=== PATIENT | female | born 1980 | race Caucasian/White ===

== ENCOUNTER → 2021-02-23 15:20 | Outpatient (CLI) | payer OTHER, SELFPAY ==
--- NOTE | ~2021-02-23 | XR_ITS ---
EXAMINATION: XR chest 2V DATE: 02/23/2021 15:56 INDICATION: Intermittent shortness of breath and persistent cough TECHNIQUE: PA and lateral views of the chest were obtained. COMPARISON: None FINDINGS: The lungs are clear with no focal airspace opacities, pulmonary edema, pleural effusion or pneumothor ax. The cardiomediastinal silhouette is normal. Mild thoracic spondylosis. IMPRESSION: 1. No acute cardiopulmonary disease. Reviewed, dictated and finalized at location A.
== END ==
PROVIDERS: Visit Provider Physician Assistant
DX: R05 Cough (principal); U07.1 COVID-19
CPT/HCPCS: 71046

== ENCOUNTER 2024-08-14 15:20 | Outpatient (CLI) | payer OTHER, SELFPAY ==
--- NOTE | ~2024-08-14 | MM_ITS ---
EXAMINATION: MM screening belle BI w clarisa HISTORY: Screening TECHNIQUE: Craniocaudal and mediolateral oblique 3-D tomosynthesis images were obtained and synthetic 2-D images were generated. CAD analysis was submitted and interpreted. COMPARISON: No prior mammogram is available for comparison at this institution. BREAST PARENCHYMAL COMPOSITION: Not dense: There are scattered areas of fibroglandular density. FINDINGS: There are asymmetries in the upper outer quadrant of both breasts, middle third. There is a large circumscribed mass in the upper inner quadrant of the left breast posteriorly. IMPRESSION: 1. Bilateral breast asymmetries and left breast mass. 2. Additional mammographic views and possible breast ultrasound are recommended. BI-RADS Category 0: Incomplete: Needs additional imaging evaluation. Reviewed, dictated and finalized at location B. IMPRESSION: 1. Bilateral breast asymmetries and left breast mass. 2. Additional mammographic views and possible breast ultrasound are recommended . BI-RADS Category 0: Incomplete: Needs additional imaging evaluation.
== END 2024-08-14 15:21 | disposition home or self-care (01) ==
LOC: ANHIMG 15:21
PROVIDERS: PCP Family Medicine; Visit Provider Physician Assistant
DX: Z12.31 Encounter for screening mammogram for malignant neoplasm of breast (principal); R92.8 Other abnormal and inconclusive findings on diagnostic imaging of breast
CPT/HCPCS: 77063; 77067

== ENCOUNTER 2024-09-01 10:20 | Outpatient (CLI) | payer OTHER, SELFPAY ==
--- NOTE | ~2024-09-01 | MMUS_ITS ---
EXAMINATION: MM diagnostic belle BI w clarisa, US breast LT limited HISTORY: Left breast mass, bilateral asymmetries TECHNIQUE: Additional 3-D tomosynthesis images of the breasts were performed and synthetic 2-D images were generated. CAD analysis was submitted and interpreted. High resolution limited left breast ultr asound was performed. COMPARISON: 08/14/2024 BREAST PARENCHYMAL COMPOSITION:Not Dense. There are scattered areas of fibroglandular density. FINDINGS: MAMMOGRAPHIC FINDINGS: The areas of bilateral asymmetry efface with spot compression. Again noted is 5.5 cm mass at the inne r, posterior left breast. ULTRASOUND: At the 11:00 position left breast, 9 cm from the nipple, there is a 5.3 x 5.4 x 1.4 cm parallel, circ umscribed solid mass, mildly hypoechoic. No posterior shadowing. Lesion is fairly homogeneous for siz e, with a small area cystic change within it. IMPRESSION: 5.3 x 5.4 x 1.4 cm mass in the posterior, inner left breast, as detailed above. Imaging characterist ics are most compatible with benign lesion such as fibroadenoma. Six-month follow-up ultrasound recom mended to assure stability. Given size, biopsy could be considered to establish a histologic diagnosi s. BI-RADS category 3, probably benign findings. Reviewed, dictated and finalized at location M. OMER EXPERIENCE INTERN IMPRESSION: 5.3 x 5.4 x 1.4 cm mass in the posterior, inner left breast, as detailed above . Imaging characteristics are most compatible with benign lesion such as fibroa denoma. Six-month follow-up ultrasound recommended to assure stability. Given s ize, biopsy could be considered to establish a histologic diagnosis. BI-RADS category 3, probably benign findings.
== END 2024-09-01 10:21 | disposition home or self-care (01) ==
LOC: ANHIMG 10:21
PROVIDERS: PCP Family Medicine; Visit Provider Physician Assistant
DX: R92.8 Other abnormal and inconclusive findings on diagnostic imaging of breast (principal)
CPT/HCPCS: 76642; 77062; 77066; G0279

== ENCOUNTER 2024-11-25 02:36 | Day surgery (SDC) | payer OTHER, SELFPAY ==
[2024-11-18 17:13] VITALS: BMI 32.9
--- NOTE | 2024-11-18 17:33 | PC.NURSE ---
Report to the Outpatient Waiting Room, entrance under the green pavilion located off [facility], at 1000 on 11-25-24. Planned Procedure Time: 1200.? Time changes happen often and if your time is changed the preop area will call you the afternoon before. - You and your visitor will be asked to self-screen and do not enter if you have any COVID symptoms. Please call surgeon if you need to reschedule. - A mask is optional within the hospital at this time. Patients may have clear liquids (water, carbonated beverages, clear teas, apple juice) until 3 hours prior to surgery with a maximum of 20 ounces. 0900 - No food from midnight until time of surgery and no smoking. This includes no chewing gum, candy or mints. - Infants may have breast milk until 4 hours before surgery, infant formula 6 hours prior to surgery. - Children will be allowed to drink immediately following surgery.? If applicable, please bring a bottle or sippy cup to assist with drinking. Juice, water, soda, and popsicles are readily available.? For infants on formula, please bring formula the day of surgery.? Pacifiers are allowed. Take only the following medications with a SIP of water on the morning of surgery: None DO NOT STOP ANY OF YOUR OTHER PRESCRIPTION MEDICATIONS PRIOR TO SURGERY EXCEPT THE FOLLOWING Medications to discontinue per physician: vitamins and supplements Date to take last dose: 11-22-24 Please no make-up, nail tristanian, hairspray, perfume, deodorant, or body powder the day of surgery.? No jewelry (including any body piercings) or valuables the day of surgery, leave them at home.? Please take a shower or bath the night before, or the morning of, surgery with an antibacterial soap.? Wear comfortable, loose fitting clothing.? Children are encouraged to wear pajamas. - Jewelry must be removed prior to entering the operating room.? Rings and piercings that are not removed may be cut off. - The hospital will not accept responsibility for valuables.? - Please leave all valuables, including medications, at home the day of surgery. If you are going home after surgery, a licensed otr company truck driver must drive you home.? - NO public transportation without another adult if you receive anesthesia. - We recommend that an adult stay with you for 24 hours following discharge. - We also recommend that you do not drive, make important decision, drink alcoholic beverages, or take any drugs that were not prescribed by your health care provider for at least 24 hours after your discharge time. For Pediatric surgeries, we recommend two adults accompany the child home. Follow any additional instructions given to you from your surgeon. Telephone instructions given to Sandra Alexis and asked if any additional questions and then verbalized understanding. Patient advised to call surgeon office or pre surgery nurse liaison [phone] if any additional questions.
--- OUTSIDE RECORDS SUMMARY | 2024-11-25 02:39 | XMS_ITS | Clinical Summary ---
Author Organization [address] [facility] [address] [place] [address] Phone Care Team Providers Care Coverage Specialist Rn Name Role Phone Unavailable Primary Care Provider Unavailabl e Social History Tobacco Use Types Packs/Day Years Used Date Smoking Tobacco: Never Assessed Comments Unknown Sex and Gender Information Value Date Recorded Sex Assigned at Not on file Legal Sex Female 9:26 AM CDT Gender Identity Not on file Sexual Orientation Not on file Plan of Treatment Health Maintenance Due Date Last Done Comments DTAP/TDAP/TD VACCINES (1 - Tdap) 12/22/1998 HEPATITIS B VACCINES (1 of 3 - 19+ 3-dose series) 12/22/1998 CERVICAL CANCER SCREENING 12/22/2009 BREAST CANCER SCREENING 2019 INFLUENZA VACCINE (#1) 2024 HPV VACCINES Aged Out No longer eligi ble based on patient's age to complete this topic PNEUMOCOCCAL VACCINE 0-64 YEARS Aged Out No longer eligible based on patient's age to complete this topic Insurance [place] [id number] Member Subscriber Plan / Payer (Ef fective 2021-Present) Name:Sandra Alexis Relation to Subscriber:Self Name:Sandra Alexis Payer ID:[id number] (NAIC) Type:O Address: [facility] [id number] [place] [id number]
--- OUTSIDE RECORDS SUMMARY | 2024-11-25 02:39 | XMS_ITS | Clinical Summary ---
Author Organization [facility] Address [address] [facility] [place] [address] Care Team Providers Care Coal Feeder Operator Name Role Phone Unavailable Primary Care Provider Unavailabl e Source Comments [facility] [employer],non-owned Affiliates and Associated Physician Practices is amultiple site organization consisting of ambulatory clinics and hospital sitesin [place], [place], [place] and [place]. This disclosure is being madepursuant to the Care Everywhere program and may not contain all information available regarding this patient. Last updated 18.[employer] Allergies No known active allergies Medications Be aware that medications may not be up to date on this document. Always verify current medications with the patient. No known medications Family History Medical History Relation Name Comments Hypertension Father Relation Name Status Comments Father Social History Tobacco Use Types Packs/Day Years Used Date Smoking Tobacco: Never Smokeless Tobacco: Never Sex and Gender Information Value Date Recorded Sex Assigned at Not on file Gender Identity Not on file Sexual Orientation Not on file Last Filed Vital Signs Vital Sign Reading Time Taken Comments Blood Pressure 118/72 10/06/2018 9:36 AM SECRETARY RECEPTIONIST Pulse 110 10/06/2018 9:36 AM SECRETARY RECEPTIONIST Temperature 36.7 ??C (98 ??F) 10/06/2018 9:36 AM SECRETARY RECEPTIONIST Respiratory Rate - - Oxygen Saturation 98% 10/06/2018 9:36 AM SECRETARY RECEPTIONIST Inhaled Oxygen Concentration - - Weight 79.4 kg (175 lb) 10/06/2018 9:36 AM SECRETARY RECEPTIONIST Height 167.6 cm (5' 6 ) 10/06/2018 9:36 AM SECRETARY RECEPTIONIST Body Mass Index 28.25 10/06/2018 9:36 AM SECRETARY RECEPTIONIST Plan of Treatment Health Maintenance Due Date Last Done Comments LIPID TESTING 1979 MAMMOGRAM 1979 PAP SMEAR 1979 HIV SCREENING 12/22/1994 HEPATITIS C SCREENING 12/18/1997 DTAP/TDAP/TD VACCINES (1 - Tdap) 12/22/1998 HEPATITIS B VACCINE (1 of 3 - 19+ 3-dose series) 12/22/1998 COVID-19 VACCINE (1 - 2023-2 5 season) 2024 INFLUENZA VACCINE (#1) 2024 DEPRESSION SCREENING 10/21/2024 ZOSTER VACCINE (1 of 2) 12/22/2029 HIB VACCINE Aged Out No longer eligi ble based on patient's age to complete this topic HPV VACCINE Aged Out No longer eligi ble based on patient's age to complete this topic MENINGOCOCCAL (Group B) VACCINE Aged Out No longer eligible based on patient's age to complete this topic MENINGOCOCCAL VACCINE Aged Out No nii bryan eligible based on patient's age to complete this topic PNEUMOCOCCAL VACCINE Aged Out No long er eligible based on patient's age to complete this topic
--- OUTSIDE RECORDS SUMMARY | 2024-11-25 02:39 | XMS_ITS | Continuity of Care Document ---
Author Organization [facility] Address [address] [place] [address] Phone Care Team Providers Care Grease Refiner Operator Name Role Phone Unavailable Unavailable Unavailable Advance Directives Directive Yes / No Effective Date File Name No Information Encounters Encounter Description Practice Location Reason(s) For Visit Diagnoses Date Provider Providers Copied on Encounter [facility], [address] [facility], [place], [place], [id number], tel:[phone] [facility] No Information No Information Referring Provider: BRYANNA Johnson, [address], [place], [address]. tel:[phone] Family History Family Member Type Diagnosis Age At Onset No Information Payers Payer name Insurance type Covered republican ID Authoriza tion(s) [facility] POS [id number] CI [id number] [facility] PPO [id number] CI [id number] Social History Type Description Quantity Date Captured Comments Sex Female Smoking Status No Information Chief Complaint And Reason For Visit No Information History Of Present Illness Encounter Date Complaint History Of Prese nt Illness No Information Instructions Date Instruction Additional Infor mation No Information Assessments Type Assessment Date No Information
--- OUTSIDE RECORDS SUMMARY | 2024-11-25 02:39 | XMS_ITS | Clinical Summary ---
Author Organization [facility] [address] Address [address] [place] [address] Care Team Providers Care Business Development Representative Name Role Phone Eliu Perez MD Primary Care Provider Social History Tobacco Use Types Packs/Day Years Used Date Smoking Tobacco: Never Assessed Personal Safety Answer Date Recorded Getting School Help Needed Not on file 01/04 Comments Unknown Sex and Gender Information Value Date Recorded Sex Assigned at Not on file Legal Sex Female 8:47 AM CDT Gender Identity Not on file Sexual Orientation Not on file Plan of Treatment Not on file Insurance [facility] CHOICE PLUS [facility] [place] [address] [place] [address] Care Teams Business Development Representative Relationship Specialty Start Date End Date Eliu Perez MD [address] [facility] [address] [place] [address] PCP - General Family Medicine 01/27/21
--- OUTSIDE RECORDS SUMMARY | 2024-11-25 02:39 | XMS_ITS | Referral Summary ---
Author Organization [facility] Address [address] [place] [address] Care Team Providers Care Pressing Machine Tender Name Role Phone Unavailable Primary Care Provider Unavailabl e Source Comments [facility],non-owned Affiliates and Associated Physician Practices is amultiple site organization consisting of ambulatory clinics and hospital sitesin [place], [place], [place] and [place]. This disclosure is being madepursuant to the Care Everywhere program and may not contain all information available regarding this patient. Last updated 18.[employer] Allergies No known active allergies Medications Be aware that medications may not be up to date on this document. Always verify current medications with the patient. No known medications Social History Tobacco Use Types Packs/Day Years Used Date Smoking Tobacco: Never Smokeless Tobacco: Never Sex and Gender Information Value Date Recorded Sex Assigned at Not on file Gender Identity Not on file Sexual Orientation Not on file Last Filed Vital Signs Vital Sign Reading Time Taken Comments Blood Pressure 118/72 10/06/2018 9:36 AM OBIEE OBIA SOLUTION ARCHITECT Pulse 110 10/06/2018 9:36 AM OBIEE OBIA SOLUTION ARCHITECT Temperature 36.7 ??C (98 ??F) 10/06/2018 9:36 AM OBIEE OBIA SOLUTION ARCHITECT Respiratory Rate - - Oxygen Saturation 98% 10/06/2018 9:36 AM OBIEE OBIA SOLUTION ARCHITECT Inhaled Oxygen Concentration - - Weight 79.4 kg (175 lb) 10/06/2018 9:36 AM OBIEE OBIA SOLUTION ARCHITECT Height 167.6 cm (5' 6 ) 10/06/2018 9:36 AM OBIEE OBIA SOLUTION ARCHITECT Body Mass Index 28.25 10/06/2018 9:36 AM OBIEE OBIA SOLUTION ARCHITECT Plan of Treatment Not on file
--- OUTSIDE RECORDS SUMMARY | 2024-11-25 02:39 | XMS_ITS | Patient Health Summary ---
Author Organization [facility] Address [address] [place] [address] Care Team Providers Care Paper Tester Name Role Phone Unavailable Primary Care Provider Unavailabl e Note from [facility],non-owned Affiliates and Associated Physician Practices is amultiple site organization consisting of ambulatory clinics and hospital sitesin [place], [place], [place] and [place]. This disclosure is being madepursuant to the Care Everywhere program and may not contain all information available regarding this patient. Last updated 18.[employer] Allergies No known active allergies Medications Be [...] Comments Blood Pressure 118/72 10/06/2018 9:36 AM SPARE HAND Pulse 110 10/06/2018 9:36 AM SPARE HAND Temperature 36.7 ??C (98 ??F) 10/06/2018 9:36 AM SPARE HAND Respiratory Rate - - Oxygen Saturation 98% 10/06/2018 9:36 AM SPARE HAND Inhaled Oxygen Concentration - - Weight 79.4 kg (175 lb) 10/06/2018 9:36 AM SPARE HAND Height 167.6 cm (5' 6 ) 10/06/2018 9:36 AM SPARE HAND Body Mass Index 28.25 10/06/2018 9:36 AM SPARE HAND
--- OUTSIDE RECORDS SUMMARY | 2024-11-25 02:39 | XMS_ITS | Referral Summary ---
Author Organization [facility] [address] Address [address] [place] [address] Care Team Providers Care Couture Dressmaker Name Role Phone Eliu Perez MD Primary [...] Plan of Treatment Not on file Insurance [facility] CHOICE PLUS [facility] H[facility]/PPO Address: [facility] [address] [place] [address] [facility] Address: [address] [address] [place] [address] Care Teams Couture Dressmaker Relationship Specialty Start Date End Date Eliu Perez MD [address] [facility] [address] [place] [address] PCP - General Family Medicine 01/27/21
[2024-11-25 12:12] VITALS: BP 128/88; PULSE 105; RESP 16; TEMP 36.6; O2SAT 99
[2024-11-25] MEDS: LACTATED RINGERS 1,000 ML 30 ML IV CONT (12:13)
[2024-11-25] MEDS: ACETAMINOPHEN 500 MG TABLET 1000 MG PO (12:26)
--- NOTE | 2024-11-25 12:50 | WPDANESEPPF ---
Anes - Initial Pre Proc Eval Procedure: Operation Date: 11/25/24 13:30 Proposed Procedures p Excisional Biopsy Left Breast Mass, Possible Adjacent Tissue Transfer - Dora Castaneda MD Date/Time: 11/25/24 12:50 Surgeon: Dora Castaneda MD Pre Op Diagnosis: left breast mass Patient Data Age: 43 Gender: F Height: 1.65 m Weight: 92.9 kg Last Vital Signs Temp 36.6 C 11/25/24 12:12 Pulse 105 H 11/25/24 12:12 Resp 16 11/25/24 12:12 BP 128/88 11/25/24 12:12 Pulse Ox 99 11/25/24 12:12 O2 Del Method Room Air 11/25/24 12:12 Allergies Allergy/AdvReac Type Severity Reaction Status Date / Time No Known Allergies Allergy Unknown Unverified 11/18/24 17:10 Home Medications ?Medication ?Instructions ?Recorded ?Confirmed ?Type cholecalciferol (vitamin D3) 50 150 mcg PO DAILY 11/18/24 11/25/24 History mcg (2,000 unit) tablet (Vitamin D3) multivitamin (Daily Multi-Vitamin 1 tablet PO DAILY 11/18/24 11/25/24 History tablet) Patient hx anesthesia problems: none Family hx anesthesia problems: none Results Review: All pre-operative results and documents have been reviewed as part of the pre-operative evaluation. [facility] Family History Family History Father Family history of coronary artery disease Social History Social History Smoking status: Never smoker Tobacco type: cigarettes Second hand tobacco smoke exposure: No Alcohol intake: current Drinks per week: 4 Alcohol use details: beer Substance use: never Substance use type: does not use Do You Feel Safe in your Home?: Yes Lack of Transportation: No Lack of Food: Never True Current Housing: I Have Housing Concerned About Future Housing: No Difficulty Paying Gas/Electric Bills: No Difficulty Paying for Meds: No Currently Unemployed: No Education: Master's Degree or Higher Difficulty w/ Childcare or Family Care: No Living arrangements: with family Occupation/Education: occupation Gender identity (if verbalized by the patient): Female Spiritual care concerns: No Anes - Eval Final PreProcedure Day of Procedure 11/25/24 12:50 Patient weight: obese Heart: regular rate and rhythm Lungs: clear to auscultation Airway: Mallampati scale class II Neurological: alert and oriented Last oral intake: >/= 8 hours ASA classification: II Emergent: no Anesthetic plan: proceed Anesthesia type and monitoring: general LMA and standard monitoring Results Review: All pre-operative results and documents have been reviewed as part of the pre-operative evaluation. Informed Consent: The patient's anesthetic plan and its attendant risks and benefits were discussed with the patient/family/POA. Questions were solicited and answers provided to the satisfaction of the patient/family/POA.
--- NOTE | 2024-11-25 13:31 | WPDHPUPDATE1 ---
History and Physical Update Update Date/Time: 11/25/24 13:31 - Left excisional biopsy of left breast mass with ultrasound guidance and possible adjacent tissue transfer History and Physical has been reviewed, including an updated exam of the patient. There are NO changes in the patient's condition. Risks, benefits, and alternatives have been discussed and questions answered. Patient agrees to proceed with procedure.
[2024-11-25] MEDS: ceFAZolin 2 GM/D5W 50 ML 2 GM/50 ML BAG IVPB (13:43)
[2024-11-25] MEDS: BUPIVACAINE/EPINEPHRINE 0.5% 30 ML VIAL 20 ML INFILTRATE (13:53)
[2024-11-25] MEDS: LIDOCAINE 1% LOCAL INJ 20 ML VIAL INFILTRATE (13:53)
--- NOTE | 2024-11-25 14:35 | W.PM.PROC2 ---
Procedure Note - Detailed Date of Procedure 11/25/24 Pre-op Diagnosis left breast mass Post-op Diagnosis Same Procedure Performed Excisional biopsy of left breast mass Surgeon Dora Castaneda MD Anesthesia General Description of Procedure Patient was identified in the preoperative holding area brought to the operating room suite. She was laid supine in the OR table sequential compression devices were applied. Anesthesia was induced without difficulty. The left chest and breast area were prepped and draped in a sterile fashion. The large palpable mass noted in the upper inner quadrant of the left breast, and decision was made to access this mass via a superior periareolar incision. Dissection was carried down through the subcutaneous tissue into the breast tissue until the mass was identified. This was well circumscribed and completely excised using electrocautery. The specimen was sent to pathology as fresh specimen. The cavity was irrigated with saline and hemostasis was assured. The deep dermal layer was closed with 3-0 Vicryl followed by 4-0 Monocryl in a subcuticular layer. Dermabond was applied to the skin followed by a sterile dressing and a surgical bra. Patient was awoken from anesthesia and taken to the recovery area in stable condition. All needles, instruments, and sponge counts were correct as reported by the operating room staff. Patient tolerated the procedure well with no immediate complications. Estimated Blood Loss 5 Pathology Yes Complications No immediate complications Condition Stable Disposition PACU [facility] Billing Surgery - Charge Forward: Surgery Billing (CPT 82443)
[2024-11-25 14:45] VITALS: BP 137/84; PULSE 91; RESP 13; TEMP 36.2; O2SAT 100
[2024-11-25 15:00] VITALS: BP 132/72; PULSE 91; RESP 21; O2SAT 100
[2024-11-25 15:15] VITALS: BP 116/73; PULSE 77; RESP 15; O2SAT 99
[2024-11-25 15:25] VITALS: BP 136/80; PULSE 87; RESP 20
[2024-11-25 15:55] VITALS: BP 145/84; PULSE 83; RESP 20
== END 2024-11-25 16:10 | disposition home or self-care (01) ==
PROVIDERS: PCP Family Medicine; Visit Provider Surgery
PROC: (CPT 19120; principal; 2024-11-25 13:30)
DX: D24.2 Benign neoplasm of left breast (principal); E66.9 Obesity, unspecified; Z68.34 Body mass index [BMI] 34.0-34.9, adult
CPT/HCPCS: 19120; 88307; A9270; J0690; J1100; J2003; J2250; J2405; J2704; J3010; J7120; Q9968